=== PATIENT | female | born 1960 | race Caucasian/White ===

== ENCOUNTER 2016-12-04 00:15 | Day surgery (SDC) | payer OTHER ==
[~2016-12-04] VITALS: Ht 177.8 cm; Wt 100.0 kg
[~2016-12-04 00:15] MED LIST: LOSA1TAB35 PO
[2016-12-04] MEDS ORDERED: fentaNYL-PF 50 mCg/mL 2 mL Inj IVPUSH PRN (06:00)
[2016-12-04] MEDS ORDERED: Sodium Chloride LOK Flush 10 mL Syringe IV PRN (06:00)
[2016-12-04] MEDS ORDERED: Lactated Ringer's 1,000 ML IV ONE (06:00)
[2016-12-04] MEDS ORDERED: 0.9% Sodium Chloride 1,000 ML IV SCH (06:00)
[2016-12-04 08:12] VITALS: BP 135/92; PULSE 83; RESP 12; O2SAT 96
[2016-12-04 09:35] VITALS: BP 147/85; PULSE 70; RESP 16; O2SAT 98
[2016-12-04 09:44] VITALS: BP 140/85; PULSE 68; RESP 16; O2SAT 97
[2016-12-04 09:46] VITALS: BP 137/77; PULSE 79; RESP 16; O2SAT 98
--- NOTE | 2016-12-04 09:57 | ENDO ---
[address] [address] ENDOSCOPY PROCEDURE PATIENT: KENNA KAY : 1960 MR#: [id number] ADMIT: 12/04/2016 JOB ID: [id number] PRIMARY PROVIDER: Prabha Louise PA-C PROCEDURE: Colonoscopy with hot snare polypectomy. INDICATIONS: A 56-year-old female who reports for colon cancer screening. EQUIPMENT: [employer]-H180-AL. SEDATION: 5 mg Versed and 100 mcg fentanyl. COMPLICATIONS: None identified. BOWEL PREPARATION: Very adequate. PROCEDURE INFORMATION: After the risks and benefits were explained, written and verbal informed consent was obtained. The patient was brought into the endoscopy suite and placed into the left lateral decubitus position. Sedation was achieved using the above-stated medications with the addition of oxygen via nasal cannula. A digital rectal examination was accomplished. No significant pathology was appreciated apart from some mild internal, external, nonbleeding, nonthrombosed hemorrhoids. The scope was introduced into the rectum and advanced under direct visualization to the level of the cecum, as identified by the appendiceal orifice and ileocecal valve. The scope was slowly withdrawn to carefully examine the mucosa for any defects or lesions. Retroflexed views were avoided in the rectum. Multiple direct views were made through the dentate line for exclusion of pathology. The colon was decompressed, the scope removed from the patient who tolerated the procedure well. FINDINGS: Lengthy redundant colon. Somewhat challenging to finally arrive in cecum. There was an approximately 1 cm, short, pedunculated polyp in the proximal ascending colon, removed with hot snare. This was retrieved in one piece using the snare itself. I did not appreciate any other significant pathology throughout. ENDOSCOPIC DIAGNOSES: 1. Colon polyp. 2. Hemorrhoids. RECOMMENDATIONS: 1. Await histopathology. 2. Repeat colonoscopy in three years.
--- NOTE | 2016-12-05 16:42 | PATH ---
SURGICAL PATHOLOGY Attending Physician:Haleigh Quinones CASE STATUS: Signed Out PATIENT NAME: KENNA KAY PID: [id number] : 1960 DATE COLLECTED:12/04/2016 16:28 SPECIMEN: Colon, Polyp CLINICAL HISTORY: 1). ASCENDING COLON POLYP FINAL DIAGNOSIS: 1.ASCENDING COLON, POLYP, BIOPSY: TUBULAR ADENOMA; NEGATIVE FOR HIGH-GRADE DYSPLASIA. ICD10 K63.5 GROSS DESCRIPTION: The specimen is received in one formalin filled container labeled with the patient's name, sublabeled "ascending colon polyp" and consists of a 0.9 x 0.9 x 0.9 CM portion of tissue which is trisected and entirely submitted in one cassette. 12/04/2016DC MICRO DESCRIPTION: See diagnosis. ICD-9 CODES: CPT CODES: 1: 94254 Electronically Signed Out Nellie Renteria MD [facility] Pathology [facility] [address], [place] [address] Technical component performed at [facility], [facility] [address], [place], [address]
== END 2016-12-04 23:59 | disposition home or self-care (01) ==
LOC: END 00:15
PROVIDERS: ATTEND Internal Medicine Gastroenterology
DX: Z12.11 Encounter for screening for malignant neoplasm of colon (principal); D12.2 Benign neoplasm of ascending colon; K64.8 Other hemorrhoids; I10 Essential (primary) hypertension